=== PATIENT | male | born 2000 | race Caucasian/White ===

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

== ENCOUNTER 2022-04-01 20:12 | Emergency (ER) | payer MEDICAID | END 2022-04-01 21:20 | disposition home or self-care (01) | LOC: DL.ED 20:12 | DX: S66.911A Strain of unspecified muscle, fascia and tendon at wrist and hand level, right hand, initial encounter (principal); W01.0XXA Fall on same level from slipping, tripping and stumbling without subsequent striking against object, initial encounter; Y93.67 Activity, basketball | CPT/HCPCS: 73110-RT; 99282; 99283 ==

== ENCOUNTER 2022-11-12 22:19 | Emergency (ER) | payer BC, MEDICAID | END 2022-11-13 00:48 | disposition home or self-care (01) | LOC: DL.ED 22:19 | DX: S82.891A Other fracture of right lower leg, initial encounter for closed fracture (principal); Z88.8 Allergy status to other drugs, medicaments and biological substances; W50.0XXA Accidental hit or strike by another person, initial encounter; Y93.67 Activity, basketball | CPT/HCPCS: 29505; 73610-RT; 99282; 99283-25 ==